=== PATIENT | male | born 1980 | race Caucasian/White ===

== ENCOUNTER 2024-09-21 15:20 | Inpatient (IN) | payer OTHER ==
[2024-09-21 16:49] LABS: VENOUS BASE EXCESS 3.1 mmol/L (-2-2); VENOUS O2 SATURATION 54.3 % (70-80); VENOUS PCO2 37.2 mmHg (38-52); VENOUS PH 7.475 (7.310-7.410)
[2024-09-21 16:55] LABS: Reticulocyte % 2.99 % (0.51-1.81)
[2024-09-21 16:56] LABS: ABSOLUTE IMMATURE GRANULOCYTES 0.08 x10^3/uL (0.0-0.031); BASOPHILS # 0.09 x10^3/uL (0.01-0.08); EOSINOPHILS # 0.07 x10^3/uL (0.04-0.54); HEMATOCRIT 25.2 % (40.1-51.0); HEMOGLOBIN 7.9 g/dL (13.7-17.5); MCHC 31.3 g/dl (32.3-36.5); MEAN CELL VOLUME 92.3 fl (79.0-92.2); MEAN PLT VOLUME 9.4 fl (9.4-12.4); MONOCYTE # 0.45 x10^3/uL (0.30-0.82); MONOCYTE % 6.7 % (5.3-12.2); PLATELET COUNT 216 x10^3/uL (163-337); RDW 18.6 % (12.1-15.9)
[2024-09-21 17:08] LABS: POTASSIUM 4.8 mmol/L (3.5-5.1)
[2024-09-21 17:10] LABS: CALCIUM 9.6 mg/dL (8.5-10.1)
[2024-09-21 17:11] LABS: ALBUMIN 2.8 g/dl (3.4-5.0); BLOOD UREA NITROGEN 35.2 mg/dL (7-18)
[2024-09-21 17:12] LABS: BILIRUBIN,DIRECT 0.3 mg/dL (0.0-0.2)
[2024-09-21] MEDS ORDERED: PIPERACILLIN/TAZOB 4.5 GM 4.5 GM/100 ML BAG IVPB ONE (17:13)
[2024-09-21 17:14] LABS: CREATININE 3.9 mg/dL (0.55-1.3)
[2024-09-21 17:15] LABS: BILIRUBIN,TOTAL 0.7 mg/dL (0.2-1); TOT PROT 6.8 g/dl (6.4-8.2)
[2024-09-21] MEDS: PIPERACILLIN/TAZOB 4.5 GM 4.5 GM in DEXTROSE 5%-WATER 100 ML IVPB ONE (17:35)
[2024-09-21] MEDS ORDERED: VANCOMYCIN 1 GM PREMIX (F) 1 GM/200 ML BAG ONE (17:35)
[2024-09-21] MEDS: VANCOMYCIN 1,000 MG in DEXTROSE 5%-WATER - 250 ML IVPB ONE (18:01)
[2024-09-21 19:43] LABS: INR 1.32 (0.83-1.09); PROTHROMBIN TIME (PATIENT) 14.4 SEC (9.7-13.0)
[2024-09-21 19:46] LABS: ACTIVATED PTT 34.4 SECONDS (25.2-36.5)
[2024-09-21] MEDS ORDERED: ACETAMINOPHEN INJECTION 100 ML ONE (19:47)
[2024-09-21] MEDS: ACETAMINOPHEN 1000 MG/100 ML BAG IVPB ONE (19:53)
[2024-09-21] MEDS ORDERED: ONDANSETRON 4 MG/2 ML VIAL IVPUSH PRN (20:22)
[2024-09-21] MEDS ORDERED: hydrALAZINE HCL 50 MG TABLET (FP) ONE (21:10)
[2024-09-21] MEDS ORDERED: FUROSEMIDE 40 MG/4 ML INJECTABLE VIAL ONE (21:11)
[2024-09-21] MEDS: FUROSEMIDE 40 MG/4 ML INJECTABLE VIAL IVPUSH ONE (21:35)
[2024-09-21] MEDS: DEXTROSE 5%-NORMAL SALINE 1,000 ML IV SCH (21:35)
[2024-09-21] MEDS: hydrALAZINE HCL 50 MG TABLET (FP) PO SCH (21:35)
[2024-09-21] MEDS: IRON SUCROSE INJECTION 200 MG in SODIUM CHLORIDE 100 ML IVPB ONE (21:48)
[2024-09-21] MEDS ORDERED: MORPHINE SULFATE 2 MG/ML SYRINGE ONE (22:24)
[2024-09-21] MEDS ORDERED: cloNIDine HCL 0.1 MG TABLET ONE (22:24)
[2024-09-21] MEDS: cloNIDine HCL 0.1 MG TABLET PO SCH (22:36)
[2024-09-21] MEDS: MORPHINE SULFATE 2 MG/ML SYRINGE IVPUSH PRN (22:36)
[2024-09-22 01:44] VITALS: BMI 22.0
[2024-09-22 06:47] LABS: ABSOLUTE IMMATURE GRANULOCYTES 0.01 x10^3/uL (0.0-0.031); BASOPHILS # 0.07 x10^3/uL (0.01-0.08); EOSINOPHIL % 1.3 % (0.8-7.0); EOSINOPHILS # 0.07 x10^3/uL (0.04-0.54); HEMATOCRIT 23.8 % (40.1-51.0); HEMOGLOBIN 7.4 g/dL (13.7-17.5); MCHC 31.1 g/dl (32.3-36.5); MEAN PLT VOLUME 9.7 fl (9.4-12.4); MONOCYTE % 7.2 % (5.3-12.2); PLATELET COUNT 200 x10^3/uL (163-337); RDW 18.6 % (12.1-15.9)
[2024-09-22 06:58] LABS: INR 1.34 (0.83-1.09); PROTHROMBIN TIME (PATIENT) 14.6 SEC (9.7-13.0)
[2024-09-22 07:06] LABS: CHLORIDE 99 mmol/L (98-107); POTASSIUM 4.8 mmol/L (3.5-5.1); SODIUM 134 mmol/L (136-145)
[2024-09-22 07:08] LABS: BLOOD UREA NITROGEN 39.3 mg/dL (7-18); CALCIUM 9.5 mg/dL (8.5-10.1)
[2024-09-22 07:10] LABS: ALBUMIN 2.6 g/dl (3.4-5.0); ANION GAP 11 mmol/L (4-13); CO2 24 mmol/L (21-32); GLUCOSE,RANDOM 92 mg/dL (74-106)
[2024-09-22 07:13] LABS: CREATININE 4.4 mg/dL (0.55-1.3); SGOT/AST 20 U/L (15-37); SGPT/ALT 15 U/L (13-61)
[2024-09-22 07:14] LABS: BILIRUBIN,TOTAL 0.9 mg/dL (0.2-1); TOT PROT 6.4 g/dl (6.4-8.2)
[2024-09-22 07:15] LABS: ALK PHOS 149 U/L (45-117)
[2024-09-22] MEDS: ALBUTEROL SO4 0.083% IH SOL 2.5 MG/3 ML VIAL.NEB. NEB PRN (09:07)
[2024-09-22] MEDS: cloNIDine HCL 0.1 MG TABLET PO ONE (10:01)
[2024-09-22] MEDS: PANTOPRAZOLE 40 MG TABLET PO SCH (10:01)
[2024-09-22] MEDS: hydrALAZINE HCL 50 MG TABLET (FP) PO SCH (10:01)
[2024-09-22] MEDS: THIAMINE 100 MG TABLET PO SCH (10:01)
[2024-09-22] MEDS: LIDOCAINE 4% PATCH TP SCH (12:37)
[2024-09-22] MEDS: CYANOCOBALAMIN (VITAMIN B-12) 100 MCG TABLET PO SCH (14:30)
[2024-09-22 18:21] LABS: GAMMA GLUTAMYL TRANSPEPTIDASE 74 U/L (5-85)
[2024-09-22 18:24] LABS: IRON SERUM 99 ug/dL (50-175); TOTAL IRON BINDING CAPACITY 195 ug/dL (250-450)
[2024-09-22] MEDS: LIDOCAINE PATCH REMOVAL MC SCH (21:35)
[2024-09-22] MEDS: cloNIDine HCL 0.1 MG TABLET PO SCH (21:36)
[2024-09-23 07:24] LABS: ABSOLUTE IMMATURE GRANULOCYTES 0.03 x10^3/uL (0.0-0.031); BASOPHILS # 0.08 x10^3/uL (0.01-0.08); EOSINOPHIL % 1.1 % (0.8-7.0); EOSINOPHILS # 0.08 x10^3/uL (0.04-0.54); HEMATOCRIT 22.7 % (40.1-51.0); HEMOGLOBIN 7.1 g/dL (13.7-17.5); MCHC 31.3 g/dl (32.3-36.5); MEAN CELL VOLUME 94.2 fl (79.0-92.2); MEAN PLT VOLUME 9.7 fl (9.4-12.4); PLATELET COUNT 189 x10^3/uL (163-337); RDW 18.1 % (12.1-15.9)
[2024-09-23 07:55] LABS: CHLORIDE 97 mmol/L (98-107); POTASSIUM 5.6 mmol/L (3.5-5.1); SODIUM 132 mmol/L (136-145)
[2024-09-23 08:00] LABS: CALCIUM 9.9 mg/dL (8.5-10.1)
[2024-09-23 08:02] LABS: ALBUMIN 2.7 g/dl (3.4-5.0); ANION GAP 10 mmol/L (4-13); BLOOD UREA NITROGEN 47.1 mg/dL (7-18); CO2 25 mmol/L (21-32); GLUCOSE,RANDOM 94 mg/dL (74-106); MAGNESIUM 1.9 mg/dL (1.8-2.4)
[2024-09-23 08:04] LABS: CREATININE 5.7 mg/dL (0.55-1.3); SGOT/AST 30 U/L (15-37); SGPT/ALT 18 U/L (13-61)
[2024-09-23 08:05] LABS: BILIRUBIN,TOTAL 0.7 mg/dL (0.2-1); TOT PROT 6.5 g/dl (6.4-8.2)
[2024-09-23 08:07] LABS: ALK PHOS 141 U/L (45-117)
[2024-09-23 11:59] LABS: IRON SERUM 32 ug/dL (50-175)
[2024-09-23 12:00] LABS: TOTAL IRON BINDING CAPACITY 217 ug/dL (250-450)
[2024-09-23] MEDS: hydrALAZINE HCL 50 MG TABLET (FP) PO SCH (13:27)
[2024-09-23] MEDS ORDERED: SODIUM CHLORIDE 250 ML IV PRN (15:46)
[2024-09-23] MEDS: EPOETIN ALFA-EPBX 4,000 UNIT/ML VIAL SQ ONE (17:46)
[2024-09-23 18:53] LABS: N-TERMINAL BNP > 175000.0 pg/ml (5-125)
[2024-09-24] MEDS: ACETAMINOPHEN 500 MG TABLET (FP) PO PRN (04:38)
[2024-09-24 07:11] LABS: HEMATOCRIT 20.2 % (40.1-51.0); HEMOGLOBIN 6.3 g/dL (13.7-17.5); MCHC 31.2 g/dl (32.3-36.5); MEAN CELL VOLUME 93.1 fl (79.0-92.2); MEAN PLT VOLUME 9.5 fl (9.4-12.4); PLATELET COUNT 177 x10^3/uL (163-337); RDW 18.3 % (12.1-15.9)
[2024-09-24 07:30] LABS: POTASSIUM 4.2 mmol/L (3.5-5.1)
[2024-09-24 07:45] LABS: CALCIUM 9.3 mg/dL (8.5-10.1)
[2024-09-24 07:46] LABS: ALBUMIN 2.5 g/dl (3.4-5.0); BLOOD UREA NITROGEN 22.2 mg/dL (7-18)
[2024-09-24 07:47] LABS: PHOSPHOROUS 4.6 mg/dL (2.5-4.9)
[2024-09-24 07:49] LABS: BILIRUBIN,TOTAL 0.6 mg/dL (0.2-1); CREATININE 3.6 mg/dL (0.55-1.3)
[2024-09-24 10:27] LABS: HEMATOCRIT 19.9 % (40.1-51.0); HEMOGLOBIN 6.3 g/dL (13.7-17.5); MCHC 31.7 g/dl (32.3-36.5); MEAN CELL VOLUME 93.9 fl (79.0-92.2); MEAN PLT VOLUME 9.8 fl (9.4-12.4); PLATELET COUNT 175 x10^3/uL (163-337); RDW 18.2 % (12.1-15.9)
[2024-09-24] MEDS ORDERED: SODIUM CHLORIDE 250 ML IV PRN (11:41)
[2024-09-24] MEDS ORDERED: ONDANSETRON 4 MG/2 ML VIAL IVPUSH PRN (11:41)
[2024-09-24] MEDS: cloNIDine HCL 0.1 MG TABLET PO SCH (13:30)
[2024-09-24] MEDS: hydrALAZINE HCL 50 MG TABLET (FP) PO SCH (13:30)
[2024-09-24] MEDS: ALBUTEROL SO4 0.083% IH SOL 2.5 MG/3 ML VIAL.NEB. NEB PRN (15:45)
[2024-09-24] MEDS: LIDOCAINE PATCH REMOVAL MC SCH (21:58)
[2024-09-25 08:33] LABS: HEMATOCRIT 21.6 % (40.1-51.0); HEMOGLOBIN 6.8 g/dL (13.7-17.5); MCHC 31.5 g/dl (32.3-36.5); MEAN CELL VOLUME 92.7 fl (79.0-92.2); MEAN PLT VOLUME 9.8 fl (9.4-12.4); PLATELET COUNT 183 x10^3/uL (163-337); RDW 18.4 % (12.1-15.9)
[2024-09-25 08:41] LABS: POTASSIUM 4.8 mmol/L (3.5-5.1)
[2024-09-25 08:54] LABS: ALBUMIN 2.5 g/dl (3.4-5.0); CALCIUM 9.6 mg/dL (8.5-10.1); MAGNESIUM 1.8 mg/dL (1.8-2.4)
[2024-09-25 08:57] LABS: CREATININE 4.9 mg/dL (0.55-1.3)
[2024-09-25 08:59] LABS: TOT PROT 6.2 g/dl (6.4-8.2)
[2024-09-25] MEDS ORDERED: SODIUM CHLORIDE 250 ML IV PRN (09:00)
[2024-09-25 09:01] LABS: BILIRUBIN,TOTAL 0.8 mg/dL (0.2-1)
[2024-09-25] MEDS ORDERED: EPOETIN ALFA-EPBX 4,000 UNIT/ML VIAL SQ ONE (10:00)
[2024-09-25] MEDS: EPOETIN ALFA-EPBX 2,000 UNIT, EPOETIN ALFA-EPBX 3,000 UNIT IVPUSH ONE (10:40)
[2024-09-25] MEDS: LIDOCAINE 4% PATCH TP SCH (13:40)
[2024-09-25] MEDS: CYANOCOBALAMIN (VITAMIN B-12) 100 MCG TABLET PO SCH (13:40)
[2024-09-25] MEDS: PANTOPRAZOLE 40 MG TABLET PO SCH (13:40)
[2024-09-25] MEDS: THIAMINE 100 MG TABLET PO SCH (13:40)
[2024-09-25 18:26] LABS: HEMATOCRIT 25.1 % (40.1-51.0); HEMOGLOBIN 7.9 g/dL (13.7-17.5); MCHC 31.5 g/dl (32.3-36.5); MEAN CELL VOLUME 91.9 fl (79.0-92.2); MEAN PLT VOLUME 9.7 fl (9.4-12.4); PLATELET COUNT 190 x10^3/uL (163-337); RDW 18.8 % (12.1-15.9)
[2024-09-25] MEDS: ACETAMINOPHEN 500 MG TABLET (FP) PO PRN (22:44)
[2024-09-26 08:28] LABS: HEMATOCRIT 23.9 % (40.1-51.0); HEMOGLOBIN 7.5 g/dL (13.7-17.5); MCHC 31.4 g/dl (32.3-36.5); PLATELET COUNT 183 x10^3/uL (163-337); RDW 18.9 % (12.1-15.9)
[2024-09-26 08:39] LABS: POTASSIUM 3.9 mmol/L (3.5-5.1)
[2024-09-26 08:43] LABS: CALCIUM 9.3 mg/dL (8.5-10.1)
[2024-09-26 08:44] LABS: ALBUMIN 2.3 g/dl (3.4-5.0); BLOOD UREA NITROGEN 18.1 mg/dL (7-18); MAGNESIUM 1.7 mg/dL (1.8-2.4)
[2024-09-26 08:47] LABS: CREATININE 3.6 mg/dL (0.55-1.3); PHOSPHOROUS 4.7 mg/dL (2.5-4.9)
[2024-09-26 08:49] LABS: BILIRUBIN,TOTAL 0.8 mg/dL (0.2-1); TOT PROT 5.8 g/dl (6.4-8.2)
[2024-09-27] MEDS: REMDESIVIR 200 MG in SODIUM CHLORIDE 250 ML IVPB ONE (13:40)
[2024-09-28] MEDS: REMDESIVIR 100 MG in SODIUM CHLORIDE 250 ML IVPB SCH (09:50)
[2024-09-28 11:43] LABS: ABSOLUTE IMMATURE GRANULOCYTES 0.01 x10^3/uL (0.0-0.031); BASOPHILS # 0.06 x10^3/uL (0.01-0.08); EOSINOPHIL % 1.2 % (0.8-7.0); EOSINOPHILS # 0.07 x10^3/uL (0.04-0.54); HEMATOCRIT 23.5 % (40.1-51.0); HEMOGLOBIN 7.4 g/dL (13.7-17.5); MCHC 31.5 g/dl (32.3-36.5); MEAN CELL VOLUME 91.1 fl (79.0-92.2); MEAN PLT VOLUME 9.8 fl (9.4-12.4); MONOCYTE # 0.35 x10^3/uL (0.30-0.82); MONOCYTE % 5.9 % (5.3-12.2); PLATELET COUNT 195 x10^3/uL (163-337); RDW 18.2 % (12.1-15.9)
[2024-09-28 11:59] LABS: ALBUMIN 2.2 g/dl (3.4-5.0); BLOOD UREA NITROGEN 29.1 mg/dL (7-18); CALCIUM 9.2 mg/dL (8.5-10.1)
[2024-09-28 12:02] LABS: CREATININE 6.1 mg/dL (0.55-1.3)
[2024-09-28 12:04] LABS: BILIRUBIN,TOTAL 0.6 mg/dL (0.2-1); TOT PROT 5.5 g/dl (6.4-8.2)
[2024-09-28] MEDS ORDERED: SODIUM CHLORIDE 250 ML IV PRN (14:54)
[2024-09-28] MEDS: EPOETIN ALFA-EPBX 3,000 UNIT/ML VIAL SQ ONE (15:46)
[2024-09-29 08:15] LABS: HEMOGLOBIN 7.5 g/dL (13.7-17.5); MCHC 31.3 g/dl (32.3-36.5); MEAN CELL VOLUME 92.3 fl (79.0-92.2); MEAN PLT VOLUME 9.5 fl (9.4-12.4); PLATELET COUNT 214 x10^3/uL (163-337); RDW 17.8 % (12.1-15.9)
[2024-09-29 09:06] LABS: POTASSIUM 3.4 mmol/L (3.5-5.1)
[2024-09-29 09:13] LABS: BLOOD UREA NITROGEN 15.9 mg/dL (7-18)
[2024-09-29 09:14] LABS: ALBUMIN 2.3 g/dl (3.4-5.0); CALCIUM 9.4 mg/dL (8.5-10.1); MAGNESIUM 1.9 mg/dL (1.8-2.4)
[2024-09-29 09:18] LABS: BILIRUBIN,TOTAL 0.6 mg/dL (0.2-1); CREATININE 4.1 mg/dL (0.55-1.3); PHOSPHOROUS 4.7 mg/dL (2.5-4.9); TOT PROT 5.8 g/dl (6.4-8.2)
[2024-09-29] MEDS: IPRATROPIUM BR 0.02% 0.5 MG/2.5 ML VIAL.NEB. NEB SCH (14:03)
[2024-09-29] MEDS: LEVALBUTEROL HCL 0.31 MG/3 ML VIAL.NEB IH SCH (14:04)
[2024-09-30 08:42] LABS: HEMATOCRIT 23.4 % (40.1-51.0); HEMOGLOBIN 7.5 g/dL (13.7-17.5); MCHC 32.1 g/dl (32.3-36.5); MEAN CELL VOLUME 90.7 fl (79.0-92.2); MEAN PLT VOLUME 9.7 fl (9.4-12.4); PLATELET COUNT 219 x10^3/uL (163-337); RDW 17.4 % (12.1-15.9)
[2024-09-30 08:44] LABS: CALCIUM 9.5 mg/dL (8.5-10.1)
[2024-09-30 08:45] LABS: ALBUMIN 2.2 g/dl (3.4-5.0); BLOOD UREA NITROGEN 21.8 mg/dL (7-18); MAGNESIUM 1.9 mg/dL (1.8-2.4)
[2024-09-30 08:48] LABS: CREATININE 5.3 mg/dL (0.55-1.3); PHOSPHOROUS 5.4 mg/dL (2.5-4.9)
[2024-09-30 08:49] LABS: BILIRUBIN,TOTAL 0.6 mg/dL (0.2-1); TOT PROT 5.5 g/dl (6.4-8.2)
[2024-09-30 08:51] LABS: POTASSIUM 3.6 mmol/L (3.5-5.1)
[2024-09-30] MEDS ORDERED: SODIUM CHLORIDE 250 ML IV PRN (10:02)
[2024-09-30] MEDS: EPOETIN ALFA-EPBX 3,000 UNIT/ML VIAL SQ ONE (10:22)
[2024-10-01 09:54] LABS: ABSOLUTE IMMATURE GRANULOCYTES 0.01 x10^3/uL (0.0-0.031); BASOPHILS # 0.04 x10^3/uL (0.01-0.08); EOSINOPHIL % 0.7 % (0.8-7.0); EOSINOPHILS # 0.04 x10^3/uL (0.04-0.54); HEMATOCRIT 27.5 % (40.1-51.0); HEMOGLOBIN 8.4 g/dL (13.7-17.5); MCHC 30.5 g/dl (32.3-36.5); MEAN CELL VOLUME 91.7 fl (79.0-92.2); MEAN PLT VOLUME 9.7 fl (9.4-12.4); MONOCYTE # 0.46 x10^3/uL (0.30-0.82); MONOCYTE % 7.8 % (5.3-12.2); PLATELET COUNT 249 x10^3/uL (163-337); RDW 17.7 % (12.1-15.9)
[2024-10-01 10:16] LABS: POTASSIUM 3.8 mmol/L (3.5-5.1)
[2024-10-01 10:24] LABS: ALBUMIN 2.4 g/dl (3.4-5.0); CALCIUM 9.5 mg/dL (8.5-10.1)
[2024-10-01 10:25] LABS: BLOOD UREA NITROGEN 13.4 mg/dL (7-18)
[2024-10-01 10:27] LABS: BILIRUBIN,TOTAL 0.8 mg/dL (0.2-1)
[2024-10-01 10:58] LABS: CREATININE 3.8 mg/dL (0.55-1.3); TOT PROT 5.9 g/dl (6.4-8.2)
[2024-10-02] MEDS ORDERED: SODIUM CHLORIDE 250 ML IV PRN (09:37)
[2024-10-02] MEDS: EPOETIN ALFA-EPBX 10,000 UNIT/ML VIAL IVPUSH ONE (10:06)
[2024-10-02 12:22] VITALS: RESP 18
[2024-10-03 14:05] VITALS: BP 160/108; PULSE 85; TEMP 97.9
== END 2024-10-03 14:51 | disposition home or self-care (01) | DRG 981 ==
LOC: JER 15:20 → JERBED 17:02 → J4W 23:53 → J5S 09-24 11:36
PROVIDERS: ADMIT Hospitalist; ATTEND Internal Medicine
PROC: 5A1D70Z Performance of Urinary Filtration, Intermittent, Less than 6 Hours Per Day (ICD-10-PCS; principal; 2024-09-23)
PROC: 0DP63UZ Removal of Feeding Device from Stomach, Percutaneous Approach (ICD-10-PCS; 2024-09-23)
PROC: 30233N1 Transfusion of Nonautologous Red Blood Cells into Peripheral Vein, Percutaneous Approach (ICD-10-PCS; 2024-09-25)
PROC: XW033E5 Introduction of Remdesivir Anti-infective into Peripheral Vein, Percutaneous Approach, New Technology Group 5 (ICD-10-PCS; 2024-09-27)
DX: J96.01 Acute respiratory failure with hypoxia (principal); J18.9 Pneumonia, unspecified organism; N18.6 End stage renal disease; U07.1 COVID-19; I12.0 Hypertensive chronic kidney disease with stage 5 chronic kidney disease or end stage renal disease; F11.20 Opioid dependence, uncomplicated; Z94.0 Kidney transplant status; K56.7 Ileus, unspecified; I48.0 Paroxysmal atrial fibrillation; I10 Essential (primary) hypertension; Z99.2 Dependence on renal dialysis; D63.1 Anemia in chronic kidney disease
CPT/HCPCS: 0241U-QW; 36415; 36430; 71045-TC-FY; 71046-TC-FY; 71250-TC; 74018-TC-FY; 76705-TC; 80053; 82248; 82607; 82728; 82746; 82803; 82977; 83010; 83036; 83540; 83550; 83615; 83690; 83735; 83880; 84100; 84484; 85025; 85027; 85610; 85730; 86850; 86900; 86901; 86922; 87040; 93005; 93010; 93306-TC; 94640; 94761; 97116-GP; 97162-GP; 99285-25; J0131; J0248; J1756; P9058; Q5106